=== PATIENT | female | born 1985 | race African-American/Black ===

== ENCOUNTER 2016-12-08 16:47 | Emergency (ER) | payer OTHER ==
[~2016-12-08] VITALS: Ht 162.6 cm; Wt 61.0 kg
[~2016-12-08 16:47] MED LIST: AMOX500T PO; DILA4TAB10 PO; MEDR4PAK3 PO; ROBA750T3 PO; TRIA.1%T TOP
[2016-12-08 16:49] VITALS: BP 123/56; PULSE 92; RESP 16; TEMP 98.1; O2SAT 98
--- NOTE | 2016-12-08 18:36 | PD ---
HPI Chief Complaint: Abdominal Pain Time Seen by Provider: 18:32 Travel History International Travel<30 days: No Contact w/Intl Traveler<30days: No Traveled to known affect area: No History of Present Illness HPI Patient is a 31-year-old female presenting to emergency for evaluation of left groin pain. Patient states is an 8 out of 10 and is aching and throbbing. Patient also reports pelvic pain, vomiting, one hour of vaginal spotting 3 days ago, breast tenderness. Patient's last menstrual cycle was mid October. She is not on any oral contraception. Patient also reports a fever of 101 2 days ago and body aches which have resolved. She denies any significant past medical history. PFSH Past Medical History Medical History: Denies Significant Hx Diminished Hearing: No Genitourinary: Yes (+ STD IN PAST, bladder cysts) Reproductive: Yes (HEAVY BLEEDING/ABDOMINAL PAIN EVERY 3 MONTHS) ?: Not LMP: 10/17/2016 : 1 Miscarriage: 1 Ectopic : No Ovarian Cysts: Yes Tubal Ligation: No Past Surgical History Hysterectomy: No Social History Alcohol Use: No Tobacco Use: Yes Substance Use: No Allergies-Medications (Allergen,Severity, Reaction): Coded Allergies: No Known Allergies (Verified , 12/08/16) Reported Meds & Prescriptions Reported Meds & Active Scripts Active Plus Iron 29-1 mg ( Vit-Iron Carbonyl) 1 Tab Tab 1 Tab PO DAILY Keflex (Cephalexin) 500 Mg Cap 500 Mg PO Q12H 7 Days Amoxicillin 500 Mg Cap 1 Tab PO TID Aristocort (Triamcinolone Acetonide) 0.1 % Cre 1 Applic TOP BID APPLY TO : ITCHY AREAS, DO NOT USE ON FACE OR GROIN Medrol Dosepak (Methylprednisolone) 4 Mg Maksim 4 Mg PO DIRECTED TAKE DIRECTED Robaxin-750 (Methocarbamol) 750 Mg Tab 750 Mg PO QID PRN Reported Dilaudid (Hydromorphone HCl) 4 Mg Tab 8 Mg PO Q4H PRN Review of Systems Except as stated in HPI: all other systems reviewed are Neg General / Constitutional: No: Fever, Chills HENT: No: Headaches Cardiovascular: No: Chest Pain or Discomfort Respiratory: No: Shortness of Breath Gastrointestinal: Positive: Nausea Genitourinary: Positive: Pelvic Pain, Vaginal Bleeding (3 days ago she had one hour of very light spotting), No: Dysuria, Discharge Musculoskeletal: Positive: Myalgias (resolved), Pain (left groin) Physical Exam Narrative GENERAL: Well-developed, well-nourished, alert female. Resting comfortably in no acute distress. SKIN: Warm and dry. HEAD: Atraumatic. Normocephalic. EYES: Pupils equal and round. No scleral icterus. No injection or drainage. ENT: No nasal bleeding or discharge. Mucous membranes pink and moist. NECK: Trachea midline. No JVD. CARDIOVASCULAR: Regular rate and rhythm. No murmur appreciated. RESPIRATORY: No accessory muscle use. Clear to auscultation. Breath sounds equal bilaterally. GASTROINTESTINAL: Abdomen soft, non-tender, nondistended. Hepatic and splenic margins not palpable. Positive bowel sounds, no rebound, no guarding. MUSCULOSKELETAL: No obvious deformities. No clubbing. No cyanosis. No edema. Tenderness to palpation in left groin. NEUROLOGICAL: Awake and alert. No obvious cranial nerve deficits. Motor grossly within normal limits. Normal speech. PSYCHIATRIC: Appropriate mood and affect; insight and judgment normal. GENITOURINARY: No dysuria, no frequency, white vaginal discharge, no bleeding. Cervix closed, no blood noted in vaginal vault, no cervical motion tenderness, no adnexal tenderness. Data Data Last Documented VS Orders Urinalysis - C+S If Indicated (12/08/16 18:28) Ua Includes Microscopic (12/08/16 18:28) Beta Hcg (Quant/Titer) (12/08/16 18:37) Complete Blood Count With Diff (12/08/16 18:37) Comprehensive Metabolic Panel (12/08/16 18:37) Gc And Chlamydia Pcr (12/08/16 18:37) Us Pelvis (Ques Pr/Ect)W Trans (12/08/16 ) Wet Prep Profile (12/08/16 18:37) Ed Urine Pregnancytest Poc (12/08/16 18:37) Urine Culture (12/08/16 18:33) Labs MDM Medical Decision Making Medical Screen Exam Complete: Yes Emergency Medical Condition: Yes Interpretation(s) Laboratory Tests Test 12/08/16 12/08/16 12/08/16 18:33 18:50 18:53 Urine Color YELLOW Urine Turbidity HAZY Urine pH 7.0 Urine Specific [place] 1.034 Urine Protein 30 mg/dL Urine Glucose (UA) NEG mg/dL Urine Ketones TRACE mg/dL Urine Occult Blood NEG Urine Nitrite NEG Urine Bilirubin NEG Urine Urobilinogen 4.0 MG/DL Urine Leukocyte Esterase MOD Urine RBC 3 /hpf Urine WBC 29 /hpf Urine Squamous Epithelial 8 /hpf Cells Urine Mucus MOD /lpf Microscopic Urinalysis Comment CULTURE INDICATED Clue Cells (Wet Prep) NONE SEEN Vaginal Trichomonas (Wet Prep) NONE SEEN Vaginal Yeast (Wet Prep) NONE SEEN White Blood Count 11.9 TH/MM3 Red Blood Count 4.05 MIL/MM3 Hemoglobin 11.9 GM/DL Hematocrit 35.0 % Mean Corpuscular Volume 86.4 FL Mean Corpuscular Hemoglobin 29.5 PG Mean Corpuscular Hemoglobin 34.1 % Concent Red Cell Distribution Width 14.1 % Platelet Count 259 TH/MM3 Mean Platelet Volume 9.1 FL Neutrophils (%) (Auto) 61.8 % Lymphocytes (%) (Auto) 23.2 % Monocytes (%) (Auto) 8.9 % Eosinophils (%) (Auto) 4.8 % Basophils (%) (Auto) 1.3 % Neutrophils # (Auto) 7.4 TH/MM3 Lymphocytes # (Auto) 2.8 TH/MM3 Monocytes # (Auto) 1.1 TH/MM3 Eosinophils # (Auto) 0.6 TH/MM3 Basophils # (Auto) 0.2 TH/MM3 CBC Comment DIFF FINAL Differential Comment Sodium Level 139 MEQ/L Potassium Level 4.2 MEQ/L Chloride Level 106 MEQ/L Carbon Dioxide Level 25.6 MEQ/L Anion Gap 7 MEQ/L Blood Urea Nitrogen 12 MG/DL Creatinine 1.10 MG/DL Estimat Glomerular Filtration 71 ML/MIN Rate Random Glucose 95 MG/DL Calcium Level 8.5 MG/DL Total Bilirubin 0.4 MG/DL Aspartate Amino Transf 9 U/L (AST/SGOT) Alanine Aminotransferase 16 U/L (ALT/SGPT) Alkaline Phosphatase 79 U/L Total Protein 7.3 GM/DL Albumin 3.4 GM/DL Human Chorionic Gonadotropin, 29619 MIU/ML Quant Vital Signs Date Time Temp Pulse Resp B/P Pulse Ox O2 Delivery O2 Flow Rate FiO2 12/08/16 16:49 98.1 92 16 123/56 98 Room Air Differential Diagnosis versus muscle strain versus ectopic versus viral syndrome versus other Narrative Course Patient's 31-year-old female presenting to emergency for evaluation of groin pain, pelvic pain, related symptoms such as nausea, breast tenderness. Her last menstrual cycle was 2 months ago and she had very light spotting for about an hour 3 days ago. Initial workup included a POC urine test that was positive. With the positive test additional labs were ordered as well as pelvic ultrasound to rule out ectopic . Pelvic exam will be performed, GC, chlamydia, wet prep ordered and pending as well. Workup initiated in triage, care of patient will be transferred to provider when a medical bed is available. Pelvic exam done, wet prep, GC chlamydia sent. No cervical motion tenderness, adnexal tenderness or masses noted. Pelvic ultrasound pending. Wet prep is negative, GC and chlamydia are pending. We'll defer treatment until resulted. Urinalysis is indicative of a urinary tract infection. CBC and chemistry are unremarkable. HCG level was greater than 36,000 Per ecologist technician there is a viable uterine with heart tones. There are also right ovarian cysts. Which could account for the pain patient is experiencing. Patient is advised to follow-up with her GR[employer] SET UP OPERATOR INTERNAL in one week. She was provided with a prescription for vitamins as well as antibiotic for the urinary tract infection. She was encouraged to return to emergency department for any new or worsening symptoms. Diagnosis Primary Impression: Qualified Code: Z3A.01 - Less than 8 weeks gestation of Additional Impression: Urinary tract infection Qualified Code: N39.0 - Urinary tract infection without hematuria, site unspecified Referrals: Electroencephalographic Technician 1 week Patient Instructions: General Instructions, Nausea and Vomiting in ( ED), at 15 to 18 Weeks (ED), Urinary Tract Infection in (ED) , Urinary Tract Infection in Women (ED) Additional Instructions: Follow-up with an compliance monitor in one week Complete full course of antibiotics as prescribed You will be notified regarding results of gonorrhea and chlamydia if positive Return to emergency department for any new or worsening symptoms Med/Other Pt SpecificInfo: Prescription(s) given Scripts Vit-Iron Carbonyl ( Plus Iron 29-1 mg)1 Tab Tab1 Tab PO DAILY #30 TAB Ref 0 Prov:Cally Grewal 12/08/16 Cephalexin (Keflex)500 Mg Lvd025 Mg PO Q12H 7 Days Ref 0 Prov:Cally Grewal 12/08/16 Disposition: 01 DISCHARGE HOME Condition: Stable Cally Grewal Dec 08, 2016 18:36 Mean Corpuscular Hemoglobin 34.1 % Concent Red Cell Distribution Width 14.1 % Platelet Count 259 TH/MM3 Mean Platelet Volume 9.1 FL Neutrophils (%) (Auto) 61.8 % Lymphocytes (%) (Auto) 23.2 % Monocytes (%) (Auto) 8.9 % Eosinophils (%) (Auto) 4.8 % Basophils (%) (Auto) 1.3 % Neutrophils # (Auto) 7.4 TH/MM3 Lymphocytes # (Auto) 2.8 TH/MM3 Monocytes # (Auto) 1.1 TH/MM3 Eosinophils # (Auto) 0.6 TH/MM3 Basophils # (Auto) 0.2 TH/MM3 CBC Comment DIFF FINAL Differential Comment Sodium Level 139 MEQ/L Potassium Level 4.2 MEQ/L Chloride Level 106 MEQ/L Carbon Dioxide Level 25.6 MEQ/L Anion Gap 7 MEQ/L Blood Urea Nitrogen 12 MG/DL Creatinine 1.10 MG/DL Estimat Glomerular Filtration 71 ML/MIN Rate Random Glucose 95 MG/DL Calcium Level 8.5 MG/DL Total Bilirubin 0.4 MG/DL Aspartate Amino Transf 9 U/L (AST/SGOT) Alanine Aminotransferase 16 U/L (ALT/SGPT) Alkaline Phosphatase 79 U/L Total Protein 7.3 GM/DL Albumin 3.4 GM/DL Human Chorionic Gonadotropin, 55804 MIU/ML Quant Vital Signs Date Time Temp Pulse Resp B/P Pulse Ox O2 Delivery O2 Flow Rate FiO2 12/08/16 16:49 98.1 92 16 123/56 98 Room Air Differential Diagnosis versus muscle strain versus ectopic versus viral syndrome versus other Narrative Course Patient's 31-year-old female presenting to emergency for evaluation of groin pain, pelvic pain, related symptoms such as nausea, breast tenderness. Her last menstrual cycle was 2 months ago and she had very light spotting for about an hour 3 days ago. Initial workup included a POC urine test that was positive. With the positive test additional labs were ordered as well as pelvic ultrasound to rule out ectopic . Pelvic exam will be performed, GC, chlamydia, wet prep ordered and pending as well. Workup initiated in triage, care of patient will be transferred to provider when a medical bed is available. Pelvic exam done, wet prep, GC chlamydia sent. No cervical motion tenderness, adnexal tenderness or masses noted. Pelvic ultrasound pending. Wet prep is negative, GC and chlamydia are pending. We'll defer treatment until resulted. Urinalysis is indicative of a urinary tract infection. CBC and chemistry are unremarkable. HCG level was greater than 36,000 Per ecologist technician there is a viable uterine with heart tones. There are also right ovarian cysts. A clean accounts for the pain patient is experiencing. Patient is encouraged to follow-up with her [employer] SET UP OPERATOR INTERNAL in one week. She was provided with a prescription for vitamins as well as antibiotic for the urinary tract infection. She was encouraged to return to emergency department for any new or worsening symptoms. Diagnosis Primary Impression: Additional Impression: Urinary tract infection Qualified Code: N39.0 - Urinary tract infection without hematuria, site unspecified Referrals: Electroencephalographic Technician 1 week Patient Instructions: General Instructions, Nausea and Vomiting in ( ED), at 15 to 18 Weeks (ED), Urinary Tract Infection in (ED) , Urinary Tract Infection in Women (ED) Additional Instructions: Follow-up with an compliance monitor in one week Complete full course of antibiotics as prescribed You will be notified regarding results of gonorrhea and chlamydia if positive Return to emergency department for any new or worsening symptoms Med/Other Pt SpecificInfo: Prescription(s) given Scripts Vit-Iron Carbonyl ( Plus Iron 29-1 mg)1 Tab Tab1 Tab PO DAILY #30 TAB Ref 0 Prov:Cally Grewal 12/08/16 Cephalexin (Keflex)500 Mg [id number] Mg PO Q12H 7 Days Ref 0 Prov:Cally Grewal 12/08/16 Disposition: 01 DISCHARGE HOME Condition: Stable Cally Grewal Dec 08, 2016 18:36
[2016-12-08 19:25] LABS: AUTOMATED NEUTROPHIL # 7.4 TH/MM3 (1.8-7.7); BASOPHIL # 0.2 TH/MM3 (0-0.2); BASOPHIL % 1.3 % (0.0-2.0); EOSINOPHIL # 0.6 TH/MM3 (0-0.4); EOSINOPHIL % 4.8 % (0.0-4.0); HEMO FLAGS DIFF FINAL; LYMPH % 23.2 % (9.0-44.0); LYMPHOCYTE # 2.8 TH/MM3 (1.0-4.8); MEAN CELL VOLUME 86.4 FL (80.0-100.0); MEAN CORPUSCULAR HEMOGLOBIN 29.5 PG (27.0-34.0); MEAN CORPUSCULAR HGB CONC 34.1 % (32.0-36.0); MONO % 8.9 % (0.0-8.0); NEUT % 61.8 % (16.0-70.0); PLATELET COUNT 259 TH/MM3 (150-450); RED BLOOD COUNT 4.05 MIL/MM3 (4.00-5.30); RED CELL DISTRIBUTION WIDTH 14.1 % (11.6-17.2); WHITE BLOOD COUNT 11.9 TH/MM3 (4.0-11.0)
[2016-12-08 19:46] LABS: BLOOD, URINE NEG (NEG); COMMENT (UR) CULTURE INDICATED; CULTURE IF INDICATED CULTURE INDICATED; GLUCOSE,URINE NEG (NEG); KETONE, URINE TRACE mg/dL (NEG); MUCUS URINE MOD /lpf (OCC); NITRITE,URINE NEG (NEG); SQUAMOUS EPITHELIAL CELL URINE 8 /hpf (0-5); URINE COLOR YELLOW (YELLW/STRAW)
[2016-12-08 20:01] LABS: ANION GAP 7 MEQ/L (5-15); AST (GOT) 9 U/L (15-37); BICARBONATE 25.6 MEQ/L (21.0-32.0); BLOOD UREA NITROGEN 12 MG/DL (7-18); CHLORIDE 106 MEQ/L (98-107); GLOMERULAR FILTRATION RATE 71 ML/MIN (>89); POTASSIUM 4.2 MEQ/L (3.5-5.1); SODIUM (NA) 139 MEQ/L (136-145)
[2016-12-08 20:17] LABS: ALKALINE PHOSPHATASE 79 U/L (45-117); ALT (GPT) 16 U/L (10-53); BETA HCG QUANT 36970 MIU/ML (0-5); TOTAL BILIRUBIN ADULT 0.4 MG/DL (0.2-1.0)
[2016-12-08] MEDS ORDERED: CEPH-460 PO (20:32)
[2016-12-08] MEDS ORDERED: PREN29TA PO (20:32)
--- NOTE | 2016-12-08 20:47 | RADRPT ---
EXAM DATE/TIME: 12/08/2016 19:39 [facility] COMPARISON: No previous studies available for comparison. INDICATIONS : Pelvic pain. LAB(S): Beta-hC,970 MEDICAL HISTORY : . Ovarian cysts. Vaginal bleeding. Bladder cysts. SURGICAL HISTORY : None. ENCOUNTER: Initial ACUITY: 2 days PAIN SCORE: 6/10 LOCATION: Bilateral pelvis MEASUREMENTS: UTERUS: 8.0 x 5.8 x 5.4 cm ENDOMETRIAL STRIPE: >20 mm RIGHT OVARY: 3.4 x 5.3 x 4.5 cm LEFT OVARY: 3.2 x 2.5 x 2.2 cm FINDINGS: UTERUS: intrauterine with crown-rump length measuring 5.4 mm correlating with a six-we ek two-day . Positive heart tones are 114 beats per minute. Yolk sac present. Hypoecho ic area adjacent to the endometrium measures 3.0 x 1.5 x 0.9 cm. RIGHT OVARY: Ovary contains no mass or significant cystic lesion. Multiple simple cysts measuring 25 x 27 x 24 mm and 27 x 20 x 16 mm. LEFT OVARY: Ovary contains no mass or significant cystic lesion. MISCELLANEOUS: There is free fluid. CONCLUSION: 1. Intrauterine estimated 6 weeks 2 days. 2. Subchorionic hemorrhage measuring 3.0 x 1.5 x 0.9 cm. Close interval followup. 3. Positive free fluid. 4. Prominent simple cyst right ovary as described above. Eddie Bhatt MD on December 08, 2016 at 20:42 Board Certified Radiologist. This report was verified electronically.
--- NOTE | 2016-12-08 21:14 | PD ---
Physical Exam Narrative Patient signed out me by previous provider pending ultrasound results. Please see her documentation for full H&P. Data Data Last Documented VS Vital Signs Date Time Temp Pulse Resp B/P Pulse Ox O2 Delivery O2 Flow Rate FiO2 12/08/16 21:26 98.5 71 16 118/63 100 12/08/16 16:49 Room Air Orders Urinalysis - C+S If Indicated (12/08/16 18:28) Ua Includes Microscopic (12/08/16 18:28) Beta Hcg (Quant/Titer) (12/08/16 18:37) Complete Blood Count With Diff (12/08/16 18:37) Comprehensive Metabolic Panel (12/08/16 18:37) Gc And Chlamydia Pcr (12/08/16 18:37) Us Pelvis (Ques Pr/Ect)W Trans (12/08/16 ) Wet Prep Profile (12/08/16 18:37) Ed Urine Pregnancytest Poc (12/08/16 18:37) Urine Culture (12/08/16 18:33) Labs Laboratory Tests Test 12/08/16 12/08/16 12/08/16 18:33 18:50 18:53 Urine Color YELLOW Urine Turbidity HAZY Urine pH 7.0 Urine Specific [place] 1.034 Urine Protein 30 mg/dL Urine Glucose (UA) NEG mg/dL Urine Ketones TRACE mg/dL Urine Occult Blood NEG Urine Nitrite NEG Urine Bilirubin NEG Urine Urobilinogen 4.0 MG/DL Urine Leukocyte Esterase MOD Urine RBC 3 /hpf Urine WBC 29 /hpf Urine Squamous Epithelial 8 /hpf Cells Urine Mucus MOD /lpf Microscopic Urinalysis Comment CULTURE INDICATED Clue Cells (Wet Prep) NONE SEEN Vaginal Trichomonas (Wet Prep) NONE SEEN Vaginal Yeast (Wet Prep) NONE SEEN Chlamydia trachomatis DNA NOT DETECTED (PCR) Neisseria gonorrhoeae DNA NOT DETECTED (PCR) White Blood Count 11.9 TH/MM3 Red Blood Count 4.05 MIL/MM3 Hemoglobin 11.9 GM/DL Hematocrit 35.0 % Mean Corpuscular Volume 86.4 FL Mean Corpuscular Hemoglobin 29.5 PG Mean Corpuscular Hemoglobin 34.1 % Concent Red Cell Distribution Width 14.1 % Platelet Count 259 TH/MM3 Mean Platelet Volume 9.1 FL Neutrophils (%) (Auto) 61.8 % Lymphocytes (%) (Auto) 23.2 % Monocytes (%) (Auto) 8.9 % Eosinophils (%) (Auto) 4.8 % Basophils (%) (Auto) 1.3 % Neutrophils # (Auto) 7.4 TH/MM3 Lymphocytes # (Auto) 2.8 TH/MM3 Monocytes # (Auto) 1.1 TH/MM3 Eosinophils # (Auto) 0.6 TH/MM3 Basophils # (Auto) 0.2 TH/MM3 CBC Comment DIFF FINAL Differential Comment Sodium Level 139 MEQ/L Potassium Level 4.2 MEQ/L Chloride Level 106 MEQ/L Carbon Dioxide Level 25.6 MEQ/L Anion Gap 7 MEQ/L Blood Urea Nitrogen 12 MG/DL Creatinine 1.10 MG/DL Estimat Glomerular Filtration 71 ML/MIN Rate Random Glucose 95 MG/DL Calcium Level 8.5 MG/DL Total Bilirubin 0.4 MG/DL Aspartate Amino Transf 9 U/L (AST/SGOT) Alanine Aminotransferase 16 U/L (ALT/SGPT) Alkaline Phosphatase 79 U/L Total Protein 7.3 GM/DL Albumin 3.4 GM/DL Human Chorionic Gonadotropin, 22970 MIU/ML Quant MDM Supervised Visit with GIUSEPPE: No Narrative Course Patient seen and evaluated. Discussed all laboratory FINDINGS INCLUDING SUBCHORIONIC HEMORRHAGE AND THE IMPORTANCE OF CLOSE FOLLOW-UP REGARDING THIS. Patient in no obvious distress upon re-evaluation. All pertinent laboratory/ Radiology result(s) discussed with patient. Patient was asked if they wanted to speak to my attending, which the patient did not wish to do at this time. Any questions/concerns in reference to patient diagnosis/condition discussed and clarified prior to patient's discharge. Reinforced sheer importance of close follow up with patient's primary physician or primary care clinic. Instructed patient to return to ED immediately, if symptoms return/worsen. Pt showed understanding of above instructions. Further instructions and recommendations were detailed in discharge paperwork. Pt ambulated without difficulty out of ED at discharge. Diagnosis Primary Impression: Qualified Code: Z3A.01 - Less than 8 weeks gestation of Additional Impressions: Urinary tract infection Qualified Code: N39.0 - Urinary tract infection without hematuria, site unspecified Subchorionic hemorrhage in first trimester Ovarian cyst during in first trimester Referrals: [facility] Bilingual Manager 1 week Patient Instructions: First Trimester (ED), General Instructions, Nausea and Vomiting in (ED), Ovarian Cyst (DC), at 15 to 18 Weeks (ED), Subchorionic Hemorrhage (ED), Urinary Tract Infection in ( ED), Urinary Tract Infection in Women (ED) Additional Instruction: Follow-up with an cardiology physician in 3-5 days for reevaluation. Complete full course of antibiotics as prescribed. Use [id number] Tylenol as needed for pain. Follow instructions on the packaging. You will be notified regarding results of gonorrhea and chlamydia if positive. Return to emergency department for any new or worsening symptoms or vaginal bleeding. Scripts Vit-Iron Carbonyl ( Plus Iron 29-1 mg)1 Tab Tab1 Tab PO DAILY #30 TAB Ref 0 Prov:Cally Grewal 12/08/16 Cephalexin (Keflex)500 Mg [id number] Mg PO Q12H 7 Days Ref 0 Prov:Cally Grewal 12/08/16 Disposition: 01 DISCHARGE HOME Condition: Stable Abelino Ballesteros Dec 08, 2016 21:14
[2016-12-08 21:26] VITALS: BP 118/63; TEMP 98.5
[2016-12-08 21:51] LABS: CHLAMYDIA PCR NOT DETECTED (NOT DETECT); NEISSERIA PCR NOT DETECTED (NOT DETECT)
== END 2016-12-08 21:26 | disposition home or self-care (01) ==
LOC: NEPB 16:47
DX: O23.41 Unspecified infection of urinary tract in pregnancy, first trimester (principal); B96.89 Other specified bacterial agents as the cause of diseases classified elsewhere; Z3A.00 Weeks of gestation of pregnancy not specified; Z72.0 Tobacco use
CPT/HCPCS: 76700; 76817; 80053; 81001; 84702; 84703; 85025; 87086; 87210; 87491; 87591

== ENCOUNTER 2017-07-17 09:49 | Emergency (ER) | payer MEDICAID, OTHER ==
[~2017-07-17] VITALS: Ht 162.6 cm; Wt 86.2 kg
[~2017-07-17 09:49] MED LIST changes: +CEPH-460 PO; +PREN29TA PO
[2017-07-17 09:55] VITALS: BP 116/71; PULSE 74; RESP 18; TEMP 98.5; O2SAT 100
== END 2017-07-17 11:16 | disposition left against medical advice (07) ==
LOC: PHEFT 09:49
DX: M79.89 Other specified soft tissue disorders (principal)
CPT/HCPCS: 99281